=== PATIENT | male | born 1935 | race African-American/Black ===

== ENCOUNTER 2017-02-18 10:46 | Day surgery (SDC) | payer MEDICARE, MEDICAID ==
[2017-02-18] VITALS (11 sets, daily range): BP systolic 100–167; BP diastolic 58–105; PULSE 42–63; TEMP 97.5
[~2017-02-18] VITALS: Ht 165.2 cm; Wt 48.0 kg
[~2017-02-18 10:46] MED LIST: ALDACTONE 25MG25 M1 PO; ASPIRIN 32325 MG/TA1 PO; ASPIRIN 81M81 MG/TA2 PO; BP MED; CHOLESTEROL MED; COREG 3.123.125 MG/T PO; EPA/GLA1 SGL PO; LASIX 40MG TABL40 MG PO; LIPITOR 10MG10 MG PO; PLAVIX 75MG TAB75 MG PO; PRINIVIL10 MG PO; PROVENTIL 2MG TA2 MG PO; RT ALBUTER2.5 MG/0.5 IH; RT SPIRIVA18 MCG IH; ZANTAC 150MG T150 MG PO; ZESTRIL 5MG5 MG PO; ZYLOPRIM 100MG100 MG PO
[2017-02-18 11:32] LABS: HEMATOCRIT 39.8 % (42.0-52.0); HEMOGLOBIN 12.3 g/dl (13.5-18.0); MEAN CELL VOLUME 106 fl (80.0-100.0); MEAN CORPUSCULAR HEMOGLOBIN 33 pg (27.0-31.0); MEAN CORPUSCULAR HGB CONC 31 g/dl (33.0-37.0); MEAN PLATELET VOLUME 12.5 fl (7.4-10.4); PLATELET COUNT 105 K/mm3 (130-400); RED BLOOD COUNT 3.76 M/mm3 (4.20-5.60)
[2017-02-18] MEDS ORDERED: ZYLOPRIM 100MG100 MG PO (11:38)
[2017-02-18] MEDS ORDERED: ASPIRIN 81M81 MG/TA2 PO (11:39)
[2017-02-18] MEDS ORDERED: LASIX 40MG TABL40 MG PO (11:43)
[2017-02-18] MEDS ORDERED: ALDACTONE 25MG25 M1 PO (11:45)
[2017-02-18 11:53] LABS: CALCIUM 10.1 mg/dL (8.4-10.2); CREATININE, serum 1.23 mg/dL (0.66-1.25); POTASSIUM 4.8 mmol/L (3.4-5.0)
[2017-02-18 11:57] LABS: PROTHROMBIN TIME 11.8 SECONDS (9.7-12.8)
== END 2017-02-18 17:07 | disposition home or self-care (01) ==
LOC: COL.CAR 10:46
PROVIDERS: Internal Medicine Interventional Cardiology
DX: I25.10 Atherosclerotic heart disease of native coronary artery without angina pectoris (principal); R94.39 Abnormal result of other cardiovascular function study; I50.22 Chronic systolic (congestive) heart failure; Z87.891 Personal history of nicotine dependence; Z79.01 Long term (current) use of anticoagulants
CPT/HCPCS: C1760; C1769; C1894; J2250; J3010; Q9967

== ENCOUNTER 2017-04-08 10:20 | Day surgery (SDC) | payer MEDICARE, MEDICAID ==
[~2017-04-08] VITALS: Ht 165.4 cm; Wt 54.0 kg
[2017-04-08] VITALS (7 sets, daily range): BP systolic 94–142; BP diastolic 54–89; PULSE 41–80; TEMP 98–98.9
[2017-04-08 10:53] LABS: MEAN CELL VOLUME 104 fl (80.0-100.0); MEAN CORPUSCULAR HGB CONC 32 g/dl (33.0-37.0); MEAN PLATELET VOLUME 11.9 fl (7.4-10.4); PLATELET COUNT 143 K/mm3 (130-400); RED BLOOD COUNT 3.52 M/mm3 (4.20-5.60); REDCELL DISTRIBUTION WIDTH-CV 12.4 % (11.5-14.5)
[2017-04-08 10:54] LABS: PROTHROMBIN TIME 12.1 SECONDS (9.7-12.8)
[2017-04-08 10:57] LABS: HEMATOCRIT 36.6 % (42.0-52.0); HEMOGLOBIN 11.6 g/dl (13.5-18.0); MEAN CORPUSCULAR HEMOGLOBIN 33 pg (27.0-31.0)
[2017-04-08 10:58] LABS: CALCIUM 10.4 mg/dL (8.4-10.2); CREATININE, serum 1.34 mg/dL (0.66-1.25)
[2017-04-08] MEDS ORDERED: ZANTAC 150MG T150 MG PO (11:30)
[2017-04-08] MEDS ORDERED: PRILOSEC 20MG20 MG PO (11:32)
[2017-04-09 01:05] VITALS: BP 128/92; PULSE 83; TEMP 98.6
[2017-04-09 04:04] VITALS: BP 120/81; PULSE 73; TEMP 98.4
[2017-04-09 07:43] VITALS: BP 127/80; PULSE 73; TEMP 98.6
[2017-04-09] MEDS ORDERED: CEPHALEXIN500 M1 PO (09:05)
== END 2017-04-09 12:00 | disposition home or self-care (01) ==
LOC: COL.CAR 10:20 → MEDICAL 15:15 → COL.CAR 04-09 12:00
PROVIDERS: Internal Medicine Interventional Cardiology
DX: I49.5 Sick sinus syndrome (principal); R00.1 Bradycardia, unspecified; I25.5 Ischemic cardiomyopathy; I48.91 Unspecified atrial fibrillation; I51.7 Cardiomegaly; I25.10 Atherosclerotic heart disease of native coronary artery without angina pectoris; Z68.1 Body mass index [BMI] 19.9 or less, adult; Z79.82 Long term (current) use of aspirin; Z87.891 Personal history of nicotine dependence
CPT/HCPCS: OP; C1785; C1894; C1898; J0690; J2250; J3010; J7030

== ENCOUNTER 2019-12-10 15:59 | Emergency (ER) | payer MEDICARE, MEDICAID ==
[~2019-12-10] VITALS: Ht 165.1 cm; Wt 50.0 kg
[~2019-12-10 15:59] MED LIST changes: +ASPIRIN E.C. 8181 MG PO; +BETAPACE 120MG120 MG PO; +CEPHALEXIN500 M1 PO; +PRILOSEC 20MG20 MG PO
[2019-12-10 16:11] VITALS: BP 95/62; PULSE 93; TEMP 98
== END 2019-12-10 17:20 | disposition left against medical advice (07) ==
LOC: COL.ER 15:59
DX: R06.00 Dyspnea, unspecified (principal); R05 Cough; F17.210 Nicotine dependence, cigarettes, uncomplicated